=== PATIENT | female | born 1980 | race Caucasian/White ===

== ENCOUNTER 2022-02-09 04:45 | Day surgery (SDC) | payer BC, OTHER ==
[2022-02-09 07:12] VITALS: BMI 27.6
[2022-02-09] MEDS ORDERED: DEXAMETHASONE SOD PHOSPHATE 4 MG/1 ML VIAL ONE (07:20)
[2022-02-09] MEDS ORDERED: KETOROLAC TROMETHAMINE 30 MG/1 ML VIAL ONE (07:20)
[2022-02-09] MEDS ORDERED: LIDOCAINE HCL 2% 100 MG/5 ML DISP.SYRIN ONE (07:20)
[2022-02-09] MEDS ORDERED: PROPOFOL 20 ML ONE ×2 (07:21)
[2022-02-09] MEDS ORDERED: SUCCINYLCHOLINE CHLORIDE 200 MG/10 ML SYRINGE ONE (07:21)
[2022-02-09] MEDS ORDERED: ROCURONIUM BROMIDE 50 MG/5 ML SYRINGE ONE (07:21)
[2022-02-09] MEDS ORDERED: MIDAZOLAM HCL 2 MG/2 ML SINGLE DOSE VIAL ONE (07:21)
[2022-02-09] MEDS ORDERED: METHYLENE BLUE 50 MG/10 ML AMPUL ONE (07:42)
[2022-02-09] MEDS ORDERED: LIDOCAINE HCL 1%, 10 MG/ML (20ML VIAL) ONE (07:42)
[2022-02-09] MEDS ORDERED: ceFAZolin SODIUM 1 GM VIAL ONE (08:27)
[2022-02-09] MEDS ORDERED: ceFAZolin SODIUM 1 GM VIAL IVPB ONE (08:35)
[2022-02-09] MEDS ORDERED: ACETAMINOPHEN INJECTION 100 ML IVPB ONE (09:48)
[2022-02-09] MEDS ORDERED: KETOROLAC TROMETHAMINE 30 MG/1 ML VIAL IVPUSH ONE ×2 (10:45→10:47)
[2022-02-09] MEDS ORDERED: PROMETHAZINE HCL 25 MG/1 ML VIAL IVPUSH PRN (10:45)
[2022-02-09] MEDS ORDERED: ONDANSETRON 4 MG/2 ML VIAL IVPUSH PRN (10:45)
[2022-02-09] MEDS ORDERED: LACTATED RINGERS SOLUTION 1,000 ML IV SCH (10:45)
[2022-02-09] MEDS ORDERED: ACETAMINOPHEN 325 MG TABLET (FP) PO PRN (10:48)
[2022-02-09] MEDS ORDERED: HYDROmorphone HCl 2 MG/ML VIAL IVPUSH PRN ×2 (12:23)
[2022-02-09] MEDS ORDERED: HYDROmorphone HCl 2 MG/ML VIAL ONE (12:23)
[2022-02-09] MEDS ORDERED: HYDROmorphone HCl 2 MG/ML VIAL IVPUSH ONE ×2 (12:25→13:20)
[2022-02-09 17:14] VITALS: RESP 18
[2022-02-09] MEDS: oxyCODONE HCL 5 MG TABLET PO PRN (22:25)
[2022-02-09] MEDS: IBUPROFEN 600 MG TABLET (FP) PO PRN (23:44)
[2022-02-10] MEDS: oxyCODONE HCL 5 MG TABLET PO PRN (05:48)
[2022-02-10] MEDS: IBUPROFEN 600 MG TABLET (FP) PO PRN (09:27)
[2022-02-10 11:44] VITALS: BP 96/63; PULSE 83; TEMP 98
== END 2022-02-10 14:15 | disposition home or self-care (01) ==
LOC: JASUSAT 04:45 → EDSTATUS 08:00 → J3W 14:02 → JASUSAT 02-10 14:15
PROVIDERS: ATTEND Obstetrics & Gynecology Maternal & Fetal Medicine
PROC: 3E0P7KZ Introduction of Other Diagnostic Substance into Female Reproductive, Via Natural or Artificial Opening (ICD-10-PCS; 2022-02-09)
PROC: 0UB10ZZ Excision of Left Ovary, Open Approach (ICD-10-PCS; principal; 2022-02-09 08:00)
DX: N80.1 Endometriosis of ovary (principal); N83.292 Other ovarian cyst, left side; N94.10 Unspecified dyspareunia; N80.9 Endometriosis, unspecified
CPT/HCPCS: 81025; 86850; 86900; 86901; 88304-TC; 94760; Q9968